=== PATIENT | male | born 1955 | race Caucasian/White ===

== ENCOUNTER 2017-03-07 10:02 | Emergency (ER) | payer BC ==
--- NOTE | 2017-03-07 12:16 | UC ---
Shoulder Pain HPI - HPI Summary HPI Summary: The patient comes in today for: 1. Left shoulder pain: Onset: 1 week. Palliative/provocative: Ray balm and heat helps. Quality: sharp and aching. Region: Anterior left shoulder. Severity: 8/10 Time: Constant. Associated symptoms: Previous disease: He has had both shoulders "planed" due to bone spurs. These shoulders will have a "popping." He will hear a "popping" recently, but there is no release of the pain. Home previous treatment: Acetaminophen which helped a little bit. Numbness/weakness: Present, but he has had this before. Previous treatment: Dr. Bowden "long time ago." Last left shoulder x-ray: "long time ago." * - History of Current Complaint Chief Complaint: UCUpperExtremity Stated Complaint: SHOULDER PAIN Time Seen by Provider: 03/07/17 11:59 Hx Obtained From: Patient, Family/Principal Biostatistician - Allergies/Home Medications Allergies/Adverse Reactions: Allergies Allergy/AdvReac Type Severity Reaction Status Date / Time Acetaminophen [From DayQuil] Allergy Severe "PUTS ME Verified 03/29/14 08:16 TO SLEEP" Dextromethorphan Allergy Severe "PUTS ME Verified 03/29/14 08:16 [From DayQuil] TO SLEEP" Doxylamine Allergy Severe "WAKES ME Verified 03/29/14 08:16 [From NyQuil Nighttime UP" Cold/Flu Medicine ] Ethanol Allergy Severe "WAKES ME Verified 03/29/14 08:16 [From NyQuil Nighttime UP" Cold/Flu Medicine ] Guaifenesin [From DayQuil] Allergy Severe "PUTS ME Verified 03/29/14 08:16 TO SLEEP" Pseudoephedrine Allergy Severe "PUTS ME Verified 03/29/14 08:16 [From DayQuil] TO SLEEP" PMH/Surg Hx/FS Hx/Imm Hx Endocrine History Of: Reports: Diabetes Denies: Thyroid Disease, Hyperthyroidism, Hypothyroidism, Dyslipidemia Cardiovascular History Of: Reports: Cardiac Disorders - 3 staents, Hypertension Denies: Pacemaker/ICD, Myocardial Infarction, Congestive Heart Failure, Atrial Fibrillation, Deep Vein Thrombosis, Bleeding Disorders Respiratory History Of: Denies: COPD, Asthma, Bronchitis, Pneumonia, Pulmonary Embolism GI/ History Of: Reports: Gall Bladder Disease Denies: Gastroesophageal Reflux, Ulcer, Gastrointestinal Bleed, Kidney Stones , Diverticulitis, Renal Disease, Urosepsis Neurological History Of: Denies: TIA, CVA, Dementia, Seizures, Migraine Psychological History Of: Denies: Anxiety, Depression, Bipolar Disorder, Schizophrenia, Post Traumatic Stress Disorder Cancer History Of: Denies: Lung Cancer, Colorectal Cancer, Breast Cancer, Prostate Cancer, Cervical Cancer Other History Of: Negative For: HIV, Hepatitis B, Hepatitis C, Anticoagulant Therapy - Surgical History Surgical History: Yes Surgery Procedure, Year, and Place: appendectomy, cholcystectomy, bone spurs removed on bilateral shoulder blades - Family History Known Family History: Positive: Cardiac Disease, Hypertension - Social History Occupation: Employed Full-time Alcohol Use: Daily Alcohol Amount: 2 DRINK/DAY Substance Use Type: None Smoking Status (MU): Former Smoker Type: Cigarettes Amount Used/How Often: 1PPD 15 YRS Have You Smoked in the Last Year: No When Did the Patient Quit Smoking/Using Tobacco: 1989 - Immunization History Most Recent Tetanus Shot: 2004 Review of Systems Constitutional: Negative Skin: Negative Eyes: Negative ENT: Negative Respiratory: Cough - yellow sputum. Cardiovascular: Negative Gastrointestinal: Negative Genitourinary: Negative Motor: Negative All Other Systems Reviewed And Are Negative: Yes Physical Exam Triage Information Reviewed: Yes Appearance: Well-Appearing, No Pain Distress, Well-Nourished Vital Signs: Initial Vital Signs Temp 98.6 F 03/07/17 10:54 Pulse 71 03/07/17 10:54 Resp 20 03/07/17 10:54 BP 151/84 03/07/17 10:54 Pulse Ox 100 03/07/17 10:54 Vital Signs Reviewed: Yes Eyes: Positive: Conjunctiva Clear. Negative: Discharge ENT: Positive: Hearing grossly normal. Negative: Pharyngeal erythema, Nasal congestion, Nasal drainage, TM bulging, TM dull, TM red, Tonsillar swelling, Tonsillar exudate Dental: Negative: Gross Decay/Caries @, Dental Fracture @ Neck: Positive: Supple, Nontender. Negative: Nuchal Rigidity Respiratory Exam: Normal Respiratory: Positive: Lungs clear, No respiratory distress, No accessory muscle use. Negative: Crackles, Wheezing Cardiovascular: Positive: RRR, No Murmur Abdomen Description: Positive: Nontender, No Organomegaly, Soft. Negative: Distended, Guarding Musculoskeletal: Positive: Strength Intact, No Edema, Other: - Shoulders: He has well-healed surgical scars of both shoulders. He is not guarding his shoulder movement. He has normal frontal abduction and lateral abduction is limited to his arm being horizontal to the ground. There is discomfort with external rotation, but not internal rotation. NVI. There was no tenderness to palpation of the coracoid process. There was slight tenderness of the biceps tendon. He had good range of motion at this elbow Neurological: Positive: Alert, Muscle Tone Normal Psychological: Positive: Normal Response To Family, Age Appropriate Behavior Skin: Negative: rashes, breakdown Diagnostics - Radiology No standard instances Xray Interpretation: No Acute Changes - Mild to moderate osteoarthritis. Radiology Interpretation Completed By: Radiologist Shoulder Course/Dx - Course Course Of Treatment: Patient told of the results of the shoulder x-ray. He was told of his treatment options. - Differential Dx/Diagnosis Differential Diagnosis/HQI/PQRI: Bursitis, Rotator Cuff Injury, Sprain Provider Diagnoses: Left shoulder pain Discharge - Discharge Plan Condition: Stable Disposition: HOME Patient Education Materials: Shoulder Sprain (ED) Referrals: Osvaldo Shannon NP [Primary Care Provider] - Additional Instructions: Please follow up with your family orthopedic surgeon (Dr. Bowden) for your left shoulder pain. If you get worse between now and then, please be seen again by us or the ER.
[2017-03-07] MEDS ORDERED: Ibuprofen TAB* 400 MG PO ONE (12:24)
--- NOTE | 2017-03-07 12:50 | RAD ---
INDICATION: Left shoulder pain COMPARISON: None TECHNIQUE: Routine frontal, Y and axial views were obtained. FINDINGS: There are no acute bony findings. There is moderate AC joint osteoarthritis and minor glenohumeral osteoarthritis. Soft tissues are normal. IMPRESSION: MILD TO MODERATE OSTEOARTHRITIS
[2017-03-07 13:20] VITALS: BP 194/101
== END 2017-03-07 13:20 | disposition home or self-care (01) ==
LOC: UCEAST 10:02
DX: M25.512 Pain in left shoulder (principal); E11.9 Type 2 diabetes mellitus without complications; I10 Essential (primary) hypertension; K82.9 Disease of gallbladder, unspecified; Z95.5 Presence of coronary angioplasty implant and graft; Z88.8 Allergy status to other drugs, medicaments and biological substances; Z87.891 Personal history of nicotine dependence
CPT/HCPCS: 99212; A9270-GY; G0463

== ENCOUNTER 2017-03-13 09:41 | Emergency (ER) | payer BC ==
--- NOTE | 2017-03-13 10:10 | UC ---
Syncope/New Syncope HPI - HPI Summary HPI Summary: The patient comes in today for: 1. Near syncope, nausea: Onset: in the last hour. Palliative/provocative: Nothing makes the pain better or worse. Quality: Pressure sensation. Region: Epigastric discomfort Severity: 3/10 Time: Constant. Associated symptoms: Event: The patient came into the urgent care with his . He went to the bathroom to have a bowel movement. He was "pushing quite a bit." The stool came out and "ultimately diarrhea." He has irritable bowel disease." While he was pushing, he had some abdominal pain. It was sharp and about a 7/10. The "bad pain." lasted about 30-40 seconds. He had diaphoresis at that time. At a few minutes later, the nausea started. At this time, he got himself together and came to his 's room (where I was) and stated that he did not feel good. He was encouraged to go to the front to let them know. He did this and was brought back to a room. AFter the nausea started, he tried to vomit 5 times. He states that he has problems with residual abdominal pressure in the epigastric area--"all across the diaphragm." During this episode he felt like he was going to faint, but he did not faint. * - History Of Current Complaint Stated Complaint: LIGHTHEADED Time Seen by Provider: 03/13/17 09:46 Hx Obtained From: Patient, Family/Park Guide - Allergies/Home Medications Allergies/Adverse Reactions: Allergies Allergy/AdvReac Type Severity Reaction Status Date / Time Acetaminophen [From DayQuil] Allergy Severe "PUTS ME Verified 03/29/14 08:16 TO SLEEP" Dextromethorphan Allergy Severe "PUTS ME Verified 03/29/14 08:16 [From DayQuil] TO SLEEP" Doxylamine Allergy Severe "WAKES ME Verified 03/29/14 08:16 [From NyQuil Nighttime UP" Cold/Flu Medicine ] Ethanol Allergy Severe "WAKES ME Verified 03/29/14 08:16 [From NyQuil Nighttime UP" Cold/Flu Medicine ] Guaifenesin [From DayQuil] Allergy Severe "PUTS ME Verified 03/29/14 08:16 TO SLEEP" Pseudoephedrine Allergy Severe "PUTS ME Verified 03/29/14 08:16 [From DayQuil] TO SLEEP" PMH/Surg Hx/FS Hx/Imm Hx Previously Healthy: No - irritable bowel disease. Endocrine History: Diabetes Cardiovascular History: Cardiac Disease - He had '3 stents put in--but no damage in the heart." This was three years ago., Hypertension Other History Of: Negative For: HIV, Hepatitis B, Hepatitis C, Anticoagulant Therapy - Surgical History Surgical History: Yes Surgery Procedure, Year, and Place: appendectomy, cholcystectomy, bone spurs removed on bilateral shoulder blades - Family History Known Family History: Positive: Cardiac Disease, Hypertension - Social History Occupation: Employed Full-time Lives: With Family Alcohol Use: Daily Alcohol Amount: 2 DRINK/DAY Substance Use Type: None Smoking Status (MU): Former Smoker Type: Cigarettes Amount Used/How Often: 1PPD 15 YRS Have You Smoked in the Last Year: No When Did the Patient Quit Smoking/Using Tobacco: 1989 - Immunization History Most Recent Tetanus Shot: 2004 Review of Systems Constitutional: Negative Skin: Negative Eyes: Negative ENT: Negative Respiratory: Negative Gastrointestinal: Abdominal Pain, Vomiting Genitourinary: Negative All Other Systems Reviewed And Are Negative: Yes Physical Exam Triage Information Reviewed: Yes Appearance: Well-Appearing, No Pain Distress, Well-Nourished Vital Signs Reviewed: Yes Eyes: Positive: Conjunctiva Clear. Negative: Discharge ENT: Positive: Nasal congestion. Negative: Hearing grossly normal, Pharyngeal erythema, Nasal drainage, TM bulging, TM dull, TM red, Tonsillar swelling, Tonsillar exudate Dental: Negative: Gross Decay/Caries @, Dental Fracture @ Neck: Positive: Supple, Nontender, No Lymphadenopathy. Negative: Nuchal Rigidity Respiratory: Positive: Lungs clear, No respiratory distress, No accessory muscle use. Negative: Crackles, Wheezing Cardiovascular: Positive: RRR, No Murmur Abdomen Description: Positive: No Organomegaly, Soft, Peritoneal Signs. Negative: Nontender - He has tenderness to palpation of the left lateral and right lower abdomen. He points to his epigastric area when he states he has pain. There is rebound tenderness by his report of the left lateral pain., Distended, Guarding Musculoskeletal: Positive: Strength Intact, ROM Intact Neurological: Positive: Alert, Muscle Tone Normal Psychological: Positive: Normal Response To Family, Age Appropriate Behavior Skin: Negative: rashes, breakdown Diagnostics - Laboratory Diagnostic Studies Completed/Ordered: EKG: Rate: 105. Rhythm: Sinus. Ectopy: NOne. Acute changes: None Syncope Course/Dx - Course Course Of Treatment: patient told that I recommend that he go to the ER at [facility] for evaluation of his near syncopal episode in light of his diabetes and abdominal pain. - Differential Dx/Diagnosis Provider Diagnoses: Near-syncope. diabetes. ABdominal pain - Physician Notification/Consults Discussed Patient Care With: Dr. Waldrop Time Discussed With Above Provider: 10:35 Discharge - Discharge Plan Condition: Stable Disposition: [facility] Additional Instructions: Patient is going to the [facility] ER via ambulance.
[2017-03-13 10:13] VITALS: BP 192/93
== END 2017-03-13 10:45 | disposition short-term general hospital (02) ==
LOC: UCEAST 09:41
DX: R55 Syncope and collapse (principal); R10.13 Epigastric pain; R10.31 Right lower quadrant pain; R10.9 Unspecified abdominal pain; I10 Essential (primary) hypertension; Z87.891 Personal history of nicotine dependence; E11.9 Type 2 diabetes mellitus without complications; Z95.5 Presence of coronary angioplasty implant and graft
CPT/HCPCS: 93005; 99203; G0463

== ENCOUNTER → 2017-03-13 10:59 | Emergency (ER) | payer BC ==
[~2017-03-13 10:59] MED LIST: Ciprofloxacin TAB* 500 MG PO ONE; Iodixanol* (CONTRAST) 320 MG/ML 100 ML SDV IV ONE; Morphine INJ* 4 MG/ML 1 ML SYRINGE IV ONE; NS 0.9% 1000 ML* 2,000 ML IV ONE; NS 0.9% 1000 ML* 3,000 ML IV ONE; Ondansetron INJ* 2 MG/ML VIAL IV ONE; metroNIDAZOLE TAB* 250 MG PO ONE
[2017-03-13 11:35] LABS: Hematocrit 53 % (42-52); Hemoglobin 17.9 g/dl (14.0-18.0); Mean Corpuscular HGB Conc 34 g/dl (31-36); Mean Corpuscular Hemoglobin 30 pg (27-31); Mean Corpuscular Volume 89 fL (80-94); Mean Platelet Volume 9 um3 (7.4-10.4); Red Blood Count 5.95 10^6/ul (4.0-5.4); Red Cell Distribution Width 13 % (10.5-15); White Blood Count 13.5 10^3/ul (3.5-10.8)
[2017-03-13 11:51] LABS: Albumin 4.3 g/dL (3.2-5.2); BUN/Creatinine Ratio 18.1 (8-20); C Reactive Protein 11.12 mg/L (< 5.00); Calcium 9.5 mg/dL (8.6-10.3); EGFR African American 104.2 (>60); EGFR Non-African American 81.1 (>60); Globulin 3.1 g/dL (2-4); Magnesium 1.9 mg/dL (1.9-2.7); Potassium 3.5 mmol/L (3.5-5.0); Total Bilirubin 0.6 mg/dL (0.2-1.0); Total Protein 7.4 g/dL (6.4-8.9)
[2017-03-13 14:02] LABS: Urine Bacteria Absent (Absent); Urine Bilirubin Negative (Negative); Urine Glucose 3+(>=500 mg/dL) (Negative); Urine Nitrite Negative (Negative)
--- NOTE | 2017-03-13 14:50 | RAD ---
Indication: Abdominal pain, colitis. Contrast: Administered 115.1 ml of VISAPAQUE 320 mgi/ml CT of the abdomen and pelvis was performed after oral and IV contrast administration. Coronal and sagittal reconstructed images were obtained. Lung bases demonstrate no pleural fluid, nodules or masses. Heart is of normal size without evidence of pericardial effusion. The liver is normal in size. No focal lesions or intrahepatic duct dilatation is noted. Patient is status post cholecystectomy. A trace amount of perihepatic ascites is noted. The spleen is normal in size. The pancreas demonstrates no mass or pancreatic duct dilatation. Common duct is not dilated. No adrenal masses are noted. The kidneys demonstrate symmetric nephrograms without evidence of focal lesions. No evidence of aneurysmal dilatation of the aorta is noted. Atherosclerotic aorta is noted. Common iliac arteries are unremarkable. CT of the pelvis demonstrates no retroperitoneal or pelvic lymphadenopathy. There is mucosal thickening of the descending colon, sigmoid colon which May represent colitis. Underlying diverticulosis is noted. Prostate is unremarkable. The urinary bladder is unremarkable. Small bowel demonstrates no abnormal dilatation. Contrast is noted in the right colon and transverse colon. The visualized bony structures are unremarkable. IMPRESSION: THERE IS MUCOSAL THICKENING OF THE DESCENDING COLON AND SIGMOID COLON WHICH MAY REPRESENT COLITIS. SMALL AMOUNT OF PERIHEPATIC ASCITES IS NOTED. NO EVIDENCE OF SMALL BOWEL OBSTRUCTION IS NOTED THERE IS CONTRAST IN THE COLON. PATIENT STATUS POST CHOLECYSTECTOMY.
[2017-03-13 17:21] VITALS: BP 140/53
--- NOTE | 2017-03-13 18:08 | ED ---
Maria Isabel Woodson Alfonso, scribed for Miles Waldrop MD on 03/13/17 at 1500 . Abdominal Pain/Male - HPI Summary HPI Summary: This patient is a 61 y.o. M presenting to the [facility] c/o diffuse abdominal pain that began last week. He visited the convenient care because his pain was gradually worsening and was referred to the ED. The pt reports lightheadedness , diaphoresis, nausea, dry heaving, coughing and green mucous. He denies CP and SOB. Sx aggravated and alleviated by nothing. His last normal BM was earlier today. Is both passing gas and belching. PMHx of hiatal hernia, CAD, HTN, and diabetes. No PMHx of IBS, diverticulitis, and Crohns Disease. PSHx of cholecystectomy and appendectomy. SHx of occasional drinking. NKDA. - History of Current Complaint Chief Complaint: EDAbdPain Stated Complaint: ABD PAIN Time Seen by Provider: 03/13/17 11:19 Hx Obtained From: Patient Onset/Duration: Gradual Onset - Over a week, Still Present, Worse Since Timing: Constant Severity Initially: Moderate Severity Currently: Moderate Pain Intensity: 4 Location: Diffuse Aggravating Factor(s): Nothing Alleviating Factor(s): Nothing Associated Signs And Symptoms: Positive: Diaphoresis, Nausea, Other - Positive lightheadedness, dry heaving, coughing and green mucous; negative SOB. Negative : Chest Pain - Allergies/Home Medications Allergies/Adverse Reactions: Allergies Allergy/AdvReac Type Severity Reaction Status Date / Time Acetaminophen [From DayQuil] Allergy Severe "PUTS ME Verified 03/29/14 08:16 TO SLEEP" Dextromethorphan Allergy Severe "PUTS ME Verified 03/29/14 08:16 [From DayQuil] TO SLEEP" Doxylamine Allergy Severe "WAKES ME Verified 03/29/14 08:16 [From NyQuil Nighttime UP" Cold/Flu Medicine ] Ethanol Allergy Severe "WAKES ME Verified 03/29/14 08:16 [From NyQuil Nighttime UP" Cold/Flu Medicine ] Guaifenesin [From DayQuil] Allergy Severe "PUTS ME Verified 03/29/14 08:16 TO SLEEP" Pseudoephedrine Allergy Severe "PUTS ME Verified 03/29/14 08:16 [From DayQuil] TO SLEEP" PMH/Surg Hx/FS Hx/Imm Hx Endocrine/Hematology History: Reports: Hx Diabetes Denies: Hx Anticoagulant Therapy, Hx Thyroid Disease, Hx Anemia, Hx Unexplained Bleeding Cardiovascular History: Reports: Hx Hypercholesterolemia, Hx Hypertension Denies: Hx Aneurysm, Hx Angina, Hx Angioplasty, Hx Auto Implanted Cardiovert Defib, Hx Cardiac Arrest, Hx Cardiomegaly, Hx Congenital Heart Disease, Hx Congestive Heart Failure, Hx Coronary Artery Disease, Hx Deep Vein Thrombosis, Hx Hypotension, Hx Myocardial Infarction, Hx Pacemaker/ICD, Hx Peripheral Vascular Disease, Hx Rheumatic Fever, Hx Syncope, Hx Valvular Heart Disease, Other Cardiovascular Problems/Disorders Respiratory History: Denies: Hx Asthma, Hx Chronic Obstructive Pulmonary Disease (COPD), Hx Lung Cancer, Hx Pneumonia, Hx Pulmonary Embolism GI History: Reports: Hx Gall Bladder Disease, Hx Gastroesophageal Reflux Disease Denies: Hx Cirrhosis, Hx Crohn's Disease, Hx Diverticulosis, Hx Gastrointestinal Bleed, Hx Hiatal Hernia, Hx Irritable Bowel, Hx Jaundice, Hx Obstructive Bowel, Hx Ileostomy, Hx Pyloric Stenosis, Hx Ulcer, Hx Urosepsis, Other GI Disorders History: Denies: Hx Kidney Stones, Hx Renal Disease Musculoskeletal History: Reports: Other Musculoskeletal History Denies: Hx Arthritis, Hx Back Problems, Hx Bursitis, Hx Congenital Bone Abnormalities, Hx Fibromyalgia, Hx Gout, Hx Orthopedic Injury, Hx Osteoporosis, Hx Scoliosis, Hx Tendonitis Sensory History: Reports: Hx Contacts or Glasses Denies: Hx Cataracts, Hx Eye Injury, Hx Eye Prosthesis, Hx Glaucoma, Hx Macular Degeneration, Hx Vision Problem, Hx Deafness, Hx Hearing Aid, Hx Hearing Problem, Other Sensory Impairments Opthamlomology History: Reports: Hx Contacts or Glasses Denies: Hx Cataracts, Hx Eye Injury, Hx Eye Prosthesis, Hx Glaucoma, Hx Macular Degeneration, Hx Vision Problem, Other Sensory Impairments Neurological History: Denies: Hx Dementia, Hx Migraine, Hx Seizures, Hx Transient Ischemic Attacks (TIA) Psychiatric History: Denies: Hx Anxiety, Hx Depression, Hx Schizophrenia, Hx Bipolar Disorder - Surgical History Surgery Procedure, Year, and Place: appendectomy, cholcystectomy, bone spurs removed on bilateral shoulder blades Hx Anesthesia Reactions: No Infectious Disease History: Denies: Hx Clostridium Difficile, Hx Hepatitis, Hx Human Immunodeficiency Virus (HIV), Hx of Known/Suspected MRSA, Hx Shingles, Hx Tuberculosis, Hx Known/ Suspected VRE, Hx Known/Suspected VRSA, History Other Infectious Disease, Traveled Outside the [place] in Last 30 Days - Family History Known Family History: Positive: Cardiac Disease, Hypertension - Social History Alcohol Use: Daily Alcohol Amount: 2 DRINK/DAY Substance Use Type: Reports: None Hx Tobacco Use: Yes Smoking Status (MU): Former Smoker Type: Cigarettes Amount Used/How Often: 1PPD 15 YRS Have You Smoked in the Last Year: No Review of Systems Positive: Skin Diaphoresis Negative: Chest Pain Positive: Other - Dry heaving, coughing and green mucous. . Negative: Shortness Of Breath Positive: Abdominal Pain, Nausea Neurological: Other - Lightheadedness All Other Systems Reviewed And Are Negative: Yes Physical Exam - Summary Physical Exam Summary: Abdomen diffuse tenderness RLQ pain, transverse colon, LLQ, no CVA tenderness Diaphoretic The patient is well-nourished in mild acute distress and in acute pain. Anxious and diaphoretic. The skin turgor decreased. HEENT: The head is normocephalic and atraumatic. The pupils are equal and reactive. The conjunctivae are clear and without drainage. Nares are patent and without drainage. Mouth reveals dry mucous membranes. The external ears are intact. The ear canals are patent and without drainage. The tympanic membranes are intact. Neck is supple with full range of motion and non-tender. There are no carotid bruits. There is no neck vein distension. Respiratory: Chest is non-tender. Lungs are clear to auscultation and breath sounds are symmetrical and equal. Cardiovascular: Hear is regular rate and rhythm. There is no murmur or rub auscultated. There is no peripheral edema and pulses are symmetrical and equal. 2 second capillary refills. Abdomen: There is diffuse abdomen tenderness. RLQ, LLQ, and travnsverse colon tenderness. No CVA tenderness. Musculoskeletal: There is no back pain noted. Extremities are non-tender with full range of motion. There is good capillary refill. There is no peripheral edema or calf tenderness elicited. Neurological: Patient is alert and oriented to person, place and time. The patient has symmetrical motor strength in all four extremities. Cranial nerves are grossly intact. Deep tendon reflexes are symmetrical and equal in all four extremities. Psychiatric: The patient has an appropriate affect and does not exhibit any anxiety or depression. Triage Information Reviewed: Yes Vital Signs On Initial Exam: Initial Vitals Temp Pulse Resp BP Pulse Ox 97.1 F 100 16 139/79 96 03/13/17 11:07 03/13/17 11:07 03/13/17 11:07 03/13/17 11:07 03/13/17 11:07 Vital Signs Reviewed: Yes Diagnostics - Vital Signs Vital Signs Temp Pulse Resp BP Pulse Ox 03/13/17 11:07 97.1 F 100 16 139/79 96 - Laboratory Lab Results: Lab Results 03/13/17 03/13/17 Range/Units 10:05 10:05 WBC 13.5 H (3.5-10.8) 10^3/ul RBC 5.95 H (4.0-5.4) 10^6/ul Hgb 17.9 (14.0-18.0) g/dl Hct 53 H (42-52) % MCV 89 (80-94) fL MCH 30 (27-31) pg MCHC 34 (31-36) g/dl RDW 13 (10.5-15) % Plt Count 276 (150-450) 10^3/ul MPV 9 (7.4-10.4) um3 Neut % (Auto) 56.6 (38-83) % Lymph % (Auto) 33.8 (25-47) % [place] % (Auto) 7.8 (1-9) % Eos % (Auto) 1.1 (0-6) % Baso % (Auto) 0.7 (0-2) % Absolute Neuts (auto) 7.6 (1.5-7.7) 10^3/ul Absolute Lymphs (auto) 4.5 (1.0-4.8) 10^3/ul Absolute Monos (auto) 1.1 H (0-0.8) 10^3/ul Absolute Eos (auto) 0.2 (0-0.6) 10^3/ul Absolute Basos (auto) 0.1 (0-0.2) 10^3/ul Absolute Nucleated RBC 0.01 10^3/ul Nucleated RBC % 0.1 INR (Anticoag Therapy) 0.89 (0.89-1.11) Result Diagrams: 03/13/17 10:05 03/13/17 10:05 Lab Statement: Any lab studies that have been ordered have been reviewed, and results considered in the medical decision making process. - CT CT A/P W/ PO Contrast CT Interpretation: Positive (See Comments) - THERE IS MUCOSAL THICKENING OF THE DESCENDING COLON AND SIGMOID COLON WHICH MAY REPRESENT COLITIS. SMALL AMOUNT OF PERIHEPATIC ASCITES IS NOTED. NO EVIDENCE OF SMALL BOWEL OBSTRUCTION IS NOTED THERE IS CONTRAST IN THE COLON. PATIENT STATUS POST CHOLECYSTECTOMY. CT Interpretation Completed By: ED Physician, Radiologist Abdominal Pain Fem Course/Dx - Course Assessment/Plan: The patient presented with gradually worstening abdominal pain. A CT A/P with PO contrast was ordered. This imaging showed mucosal thickening of desending colon, indicating possible colitis. Blood work indicates elevated WBC and slightly elevated CRP. He is stable for discharge home to follow up with his PCP in 2 days. - Diagnoses Differential Diagnosis/HQI/PQRI: AMI, Constipation, Diverticulitis, Ischemic Bowel, Ureteral Stone, Urinary Tract Infection, Other - dehydration, hyperglycemia Provider Diagnoses: Diverticulitis, Hyperglycemia, dehydration, Vasovagal near syncope Discharge - Discharge Plan Condition: Stable Disposition: HOME Prescriptions: Ciprofloxacin TAB* [Cipro 500 MG TAB*] 500 mg PO BID #20 tab Metronidazole [Flagyl 500 MG TAB] 500 mg PO QID #40 tab oxyCODONE TAB* [Roxycodone TAB 5 mg*] 5 mg PO Q6H PRN #20 tab MDD 4 PRN Reason: Pain Patient Education Materials: Ciprofloxacin (By mouth), Metronidazole (By mouth) , Diverticulitis (ED), Oxycodone/Acetaminophen (By mouth) Referrals: Osvaldo Shannon, [employer]OT[employer] SALES REPRESENTATIVE [Primary Care Provider] - 2 Days The documentation as recorded by the Maria Isabel ordaz Alfonso accurately reflects the service I personally performed and the decisions made by , Miles Waldrop MD.
== END | disposition home or self-care (01) ==
LOC: ED 10:59
DX: K57.92 Diverticulitis of intestine, part unspecified, without perforation or abscess without bleeding (principal); R73.9 Hyperglycemia, unspecified; E86.0 Dehydration; R55 Syncope and collapse; R11.0 Nausea; R10.84 Generalized abdominal pain; Z87.891 Personal history of nicotine dependence
CPT/HCPCS: 36415; 74177; 80053; 81003; 81015; 83690; 83735; 84484; 85025; 85610; 86140; 96374; 99282; A9270-GY; J2270; J2405; Q9967

== ENCOUNTER 2017-08-07 11:47 | Emergency (ER) | payer BC, OTHER ==
[2017-08-07 11:54] VITALS: BP 159/75
--- NOTE | 2017-08-07 12:06 | UC ---
Skin Complaint HPI - HPI Summary HPI Summary: 61 y/o male presents to the urgent care c/o tick bite on Left calf this morning at 1000 am. Pt reports he removed 3 ticks from his cat yesterday and this morning when he was doing some gutter work, he felt something on his left calf. He is not sure if he still has something on it. Pt denies Hx of Tick bite in the past, bull's eye rash, fever, TORRES, chest pain, N/V/D. abdominal pain. Pt states he just took his BP medication an hour ago. - History of Current Complaint Chief Complaint: UCSkin Time Seen by Provider: 08/07/17 12:05 Stated Complaint: TICK BITE Hx Obtained From: Patient Onset/Duration: Sudden Onset, Lasting Hours - 2hrs, Still Present Timing: Constant Onset Severity: Mild Current Severity: Mild Pain Intensity: 1 Pain Scale Used: 0-10 Numeric Location: Discrete - posterior side of left calf Character: Redness Aggravating Factor(s): Touch Alleviating Factor(s): Nothing Associated Signs & Symptoms: Positive: Negative Related History: Possible Reaction to: Insect - Allergy/Home Medications Allergies/Adverse Reactions: Allergies Allergy/AdvReac Type Severity Reaction Status Date / Time Acetaminophen [From DayQuil] AdvReac Severe "PUTS ME Verified 03/14/17 07:58 TO SLEEP" Dextromethorphan AdvReac Severe "PUTS ME Verified 03/14/17 07:58 [From DayQuil] TO SLEEP" Doxylamine AdvReac Severe "WAKES ME Verified 03/14/17 07:58 [From NyQuil Nighttime UP" Cold/Flu Medicine ] Ethanol AdvReac Severe "WAKES ME Verified 03/14/17 07:58 [From NyQuil Nighttime UP" Cold/Flu Medicine ] Guaifenesin [From DayQuil] AdvReac Severe "PUTS ME Verified 03/14/17 07:58 TO SLEEP" Pseudoephedrine AdvReac Severe "PUTS ME Verified 03/14/17 07:58 [From DayQuil] TO SLEEP" Review of Systems Constitutional: Negative Skin: Other - posterior left calf with tick bite Eyes: Negative ENT: Negative Respiratory: Negative Cardiovascular: Negative Gastrointestinal: Negative Genitourinary: Negative Motor: Negative Neurovascular: Negative Musculoskeletal: Negative Neurological: Negative Psychological: Negative Is Patient Immunocompromised?: No All Other Systems Reviewed And Are Negative: Yes PMH/Surg Hx/FS Hx/Imm Hx Previously Healthy: Yes Endocrine History: Diabetes, Dyslipidemia Cardiovascular History: Cardiac Disease, Hypertension Other History Of: Negative For: HIV, Hepatitis B, Hepatitis C, Anticoagulant Therapy - Surgical History Surgical History: Yes Surgery Procedure, Year, and Place: appendectomy, cholcystectomy, bone spurs removed on bilateral shoulder blades - Family History Known Family History: Positive: Cardiac Disease, Hypertension, Diabetes - Social History Occupation: Employed Full-time Lives: With Family Alcohol Use: Daily Alcohol Amount: 2 DRINK/DAY Substance Use Type: None Smoking Status (MU): Former Smoker Type: Cigarettes Amount Used/How Often: 1PPD 15 YRS Have You Smoked in the Last Year: No When Did the Patient Quit Smoking/Using Tobacco: 1989 - Immunization History Most Recent Tetanus Shot: 2004 Physical Exam Triage Information Reviewed: Yes Vital Signs: Initial Vital Signs Temp 98 F 08/07/17 11:52 Pulse 66 08/07/17 11:52 Resp 16 08/07/17 11:52 BP 159/75 08/07/17 11:52 Pulse Ox 99 08/07/17 11:52 - Additional Comments Vital Signs Reviewed: Yes General: well developed well nourished male sitting comfortably in the examining table w/o any apparent distress Eyes: Positive: Conjunctiva Clear - PERRLA, EOMI ENT: Positive: Normal ENT inspection, Hearing grossly normal, Pharynx normal, TMs normal Neck: Positive: Supple, Nontender, No Lymphadenopathy Respiratory: Positive: Chest nontender, Lungs clear, Normal breath sounds Cardiovascular: Positive: RRR, No Murmur, Pulses Normal Abdomen Description: Positive: Nontender, No Organomegaly, Soft. Negative: CVA Tenderness (R), CVA Tenderness (L) Bowel Sounds: Positive: Present Musculoskeletal: Positive: Strength Intact, ROM Intact, No Edema Neurological Exam: Normal Psychological Exam: Normal Skin: Positive: rashes - Mid posterior aspect of left calf with tick bite with surrounding erythema, non tender to palpation. tick no longer present, no swelling or drainage observed. Course/Dx - Course Course Of Treatment: 61 y/o male presents to the urgent care c/o tick bite on Left calf this morning at 1000 am. Pt reports he removed 3 ticks from his cat yesterday and this morning when he was doing some gutter work, he felt something on his left calf. He is not sure if he still has something on it. Pt denies Hx of Tick bite in the past, bull's eye rash, fever, TORRES, chest pain, N/V/ D. abdominal pain. Pt states he just took his BP medication an hour ago. Hx obtained. On PE there is mild erythema aroudn tick bite, no remmnant of tick observed with mognifying glass. Antibiotic prophylaxis with Doxycycline given to the patient to prevent lyme Disease.. Pt tolerated well medication. Pt advised to observe the area for the development or Erythema Migrans for upto 30 days following exposure. Advised if he develops fever or erythema Migrans, fever , joint pain, chest pain to return to the clinic or PCP for further treatment and lyme serology . Pt's BP elevated today , advised decrease salt in diet , monitor BP and if it continues to be elevated to f/u with PCP for further management. Pt understood and agreed with plan of care. - Differential Diagnoses - Skin Complaint Differential Diagnoses: Cellulitis, Contact Dermatitis, Local Allergic Reaction , Tick Born Illness, Urticaria, Other - bed bugs, bee sting - Diagnoses Provider Diagnoses: 1- Posterior calf with tick bite. 2- Uncontrolled HTN Discharge - Discharge Plan Condition: Stable Disposition: HOME Patient Education Materials: Tick Bite (ED), Low Sodium Diet (ED) Referrals: Kenzie DONOVAN,Niels Ho [Medical Doctor] - If Needed Osvaldo Shannon NP [Primary Care Provider] - 2 Weeks Additional Instructions: 1- Please observe the area for the development or Erythema Migrans for upto 30 days following exposure. Components of the tick saliva can cause transient erythema that should not be confused with Erythema Migrans. If you develop this rash, fever, joint pain please f/u with your PCP for further management and Lyme serology 2-Antibiotic prophylaxis with Doxycycline was given to you today to prevent Lyme Disease. 3- Your BP is elevated today, please decrease salt in your diet and monitor BP at home, if it continues to be elevated please f/u with your PCP for further management
[2017-08-07] MEDS ORDERED: DOXYcycline CAP(*) 100 MG PO ONE (12:22)
== END 2017-08-07 12:40 | disposition home or self-care (01) ==
LOC: UCEAST 11:47
DX: S80.862A Insect bite (nonvenomous), left lower leg, initial encounter (principal); W57.XXXA Bitten or stung by nonvenomous insect and other nonvenomous arthropods, initial encounter; Y93.9 Activity, unspecified; Y92.9 Unspecified place or not applicable; E11.9 Type 2 diabetes mellitus without complications; E78.5 Hyperlipidemia, unspecified; I25.10 Atherosclerotic heart disease of native coronary artery without angina pectoris; I10 Essential (primary) hypertension; Z87.891 Personal history of nicotine dependence
CPT/HCPCS: 99212; A9270-GY; G0463

== ENCOUNTER 2017-12-14 17:49 | Emergency (ER) | payer OTHER ==
[2017-12-14 18:12] VITALS: BP 151/81
--- NOTE | 2017-12-14 18:18 | UC ---
Respiratory Complaint HPI - HPI Summary HPI Summary: Pt presents with sinus congestion and post nasal drip since september. About 1 week ago his symptoms were relieved for a short time and he thought he was getting better, but a few days later he developed a productive cough and pain in his lungs when coughing. He has felt feverish, but has not taken his temperature. Feels tired a lot more often and sleeps more. Denies chills, SOB, chest pain, abdominal pain, n/v/d/c. - History of Current Complaint Chief Complaint: UCRespiratory Stated Complaint: CHEST TIGHTNESS,COUGH Time Seen by Provider: 12/14/17 18:01 Hx Obtained From: Patient Onset/Duration: Gradual Onset Timing: Constant Severity Initially: Mild Severity Currently: Mild Pain Intensity: 2 Pain Scale Used: 0-10 Numeric Character: Cough: Productive - Allergies/Home Medications Allergies/Adverse Reactions: Allergies Allergy/AdvReac Type Severity Reaction Status Date / Time acetaminophen [From NyQuil] Allergy "WAKES ME Verified 12/14/17 18:13 UP" dextromethorphan Allergy "WAKES ME Verified 12/14/17 18:13 [From NyQuil] UP" doxylamine [From NyQuil] Allergy "WAKES ME Verified 12/14/17 18:13 UP" ibuprofen Allergy "PUTS ME Verified 12/14/17 18:13 [From DayQuil Sinus TO SLEEP" Pressure/Pain] oxycodone Allergy HYPERACTIVI Verified 12/14/17 18:13 TY pseudoephedrine Allergy "PUTS ME Verified 12/14/17 18:13 [From DayQuil Sinus TO SLEEP" Pressure/Pain] Home Medications: Home Medications Guaifenesin/Dextromethorphan [Tussin Dm Liquid] PRN 12/14/17 [History] Metoprolol Tartrate TAB* [Lopressor TAB*] 100 mg PO BID 12/14/17 [History Confirmed 12/14/17] Sitagliptin Phosphate [Januvia] 100 mg PO DAILY 12/14/17 [History Confirmed 04/26] glipiZIDE [Glipizide ER] 10 mg PO DAILY 12/14/17 [History Confirmed 12/14/17] PMH/Surg Hx/FS Hx/Imm Hx Endocrine History: Diabetes Cardiovascular History: Hypertension Other History Of: Negative For: HIV, Hepatitis B, Hepatitis C, Anticoagulant Therapy - Surgical History Surgical History: Yes Surgery Procedure, Year, and Place: appendectomy, cholcystectomy, bone spurs removed on bilateral shoulder blades - Family History Known Family History: Positive: Cardiac Disease, Hypertension, Diabetes - Social History Occupation: Employed Full-time Lives: With Family Alcohol Use: Daily Alcohol Amount: 1 DRINK/DAY Substance Use Type: None Smoking Status (MU): Former Smoker Type: Cigarettes Amount Used/How Often: 1PPD 15 YRS Have You Smoked in the Last Year: No When Did the Patient Quit Smoking/Using Tobacco: 1989 - Immunization History Most Recent Tetanus Shot: 2004 Review of Systems Constitutional: Fever Skin: Negative Eyes: Negative ENT: Negative Respiratory: Cough Cardiovascular: Negative Gastrointestinal: Negative Neurological: Negative Psychological: Negative All Other Systems Reviewed And Are Negative: Yes Physical Exam - Summary Physical Exam Summary: GENERAL: NAD. WDWN. No pain distress. SKIN: No rashes, sores, ulcers, masses, lesions. HEENT: Head: AT/NC Eyes: Conjunctiva clear without inflammation or discharge. Ears: Hearing grossly normal. TMs intact, no bulging, erythema, or edema. Nose: Nasal mucosa pink and moist. NTTP maxillary and frontal sinus. Throat: Posterior oropharynx without exudates, erythema, or tonsillar enlargement. Uvula midline. NECK: Supple. Nontender. No lymphadenopathy. CHEST: Mild wheezing throughout. Crackles LLL. No accessory muscle use. Breathing comfortably and in no distress. CV: RRR. Without m/r/g. Pulses intact. Brisk cap refill. NEURO: Alert. CN II-XII grossly intact. PSYCH: Age appropriate behavior. Triage Information Reviewed: Yes Vital Signs: Initial Vital Signs Temp 97.3 F 12/14/17 18:07 Pulse 72 12/14/17 18:07 Resp 16 12/14/17 18:07 BP 151/81 12/14/17 18:07 Pulse Ox 98 12/14/17 18:07 Diagnostic Evaluation - Laboratory O2 Sat by Pulse Oximetry: 98 Re-Evaluation - Re-Evaluation First Eval Re-Evaluation Time: 19:10 Change: Improved Comment: Pt reports maybe mild relief with Duoneb, but not much change. Respiratory Course/Dx - Course Course Of Treatment: XR: IMPRESSION: Left base atelectasis without definite pneumonia. Given history and PE will treat as PNA. - Differential Dx/Diagnosis Provider Diagnoses: Pneumonia LLL Discharge - Discharge Plan Condition: Stable Disposition: HOME Prescriptions: Albuterol HFA INHALER* [Ventolin HFA Inhaler*] 1 - 2 puff INH Q6H PRN #1 mdi PRN Reason: Sob/Wheezing Levofloxacin TAB* [Levaquin 500 Tab*] 500 mg PO DAILY #7 tab Patient Education Materials: Pneumonia (ED) Forms: *Work Release Referrals: Osvaldo Shannon NP [Primary Care Provider] - Additional Instructions: If you develop a fever, shortness of breath, chest pain, new or worsening symptoms - please call your PCP or go to the ED. Your blood pressure was high at todays visit. Please see your primary provider within 4 weeks for recheck and re-evaluation. 1) Please schedule a follow up appointment with your PCP for the end of December for recheck of your chest X-Ray
[2017-12-14] MEDS ORDERED: Albuterol/Ipratropium NEB.SOL* Albuterol 2.5 MG/Ipratropium 0.5 MG 3 ML INH ONE (18:22)
--- NOTE | 2017-12-14 18:54 | RAD ---
Indication: Cough. 2 views of the chest including dual energy PA views demonstrate no mediastinal shift. Discoid atelectasis in the left lung base is noted. No pleural fluid is identified. Overall when compared to previous exam of November 27, 2015 no significant change is noted. IMPRESSION: Left base atelectasis without definite pneumonia.
== END 2017-12-14 19:15 | disposition home or self-care (01) ==
LOC: UCEAST 17:49
DX: J18.9 Pneumonia, unspecified organism (principal); E11.9 Type 2 diabetes mellitus without complications; Z79.4 Long term (current) use of insulin; Z79.84 Long term (current) use of oral hypoglycemic drugs; I10 Essential (primary) hypertension; Z88.6 Allergy status to analgesic agent; Z88.5 Allergy status to narcotic agent; Z87.891 Personal history of nicotine dependence
CPT/HCPCS: 71046; 99212; A9270-GY; G0463